=== PATIENT | female | born 1995 | race Caucasian/White ===

== ENCOUNTER 2021-07-07 03:02 | Day surgery (SDC) | payer OTHER, SELFPAY ==
[2021-06-30 10:16] VITALS: BMI 29.9
[2021-07-07] VITALS (11 sets, daily range): BP systolic 103–125; BP diastolic 57–92; PULSE 61–94; RESP 12–18; TEMP 36.6–36.8; O2SAT 95–100
[2021-07-07] MEDS: ACETAMINOPHEN 500 MG TABLET 1000 MG PO (12:26)
[2021-07-07] MEDS: LACTATED RINGERS 1,000 ML 30 ML IV CONT ×3 (12:27→16:27)
[2021-07-07] MEDS: KETOROLAC 15 MG/ML VIAL (*BKC) IV PUSH (12:27)
--- NOTE | 2021-07-07 13:04 | WPDANESEPPF ---
Anes - Initial Pre Proc Eval Procedure: Operation Date: 07/07/21 14:00 Proposed Procedures p Diagnostic Laparoscopy - Eber Velasco MD Date/Time: 07/07/21 13:04 Surgeon: Eber Velasco MD Pre Op Diagnosis: pelvic pain Patient Data Age: 26 Gender: F Height: 1.52 m Weight: 70.6 kg Last Vital Signs Temp 36.6 C 07/07/21 12:30 Pulse 79 07/07/21 12:30 Resp 18 07/07/21 12:30 BP 122/77 07/07/21 12:30 Pulse Ox 100 07/07/21 12:30 Allergies Allergy/AdvReac Type Severity Reaction Status Date / Time No Known Allergies Allergy Unverified 07/07/21 12:47 Home Medications Medication Instructions Recorded Confirmed Type albuterol sulfate 2 puff INHALATION QID PRN 06/30/21 07/07/21 History Patient hx anesthesia problems: none Family hx anesthesia problems: none Results Review: All pre-operative results and documents have been reviewed as part of the pre-operative evaluation. [facility] Past Medical History Medical History Asthma Social History Social History Years smoked: 1 Smoking status: Former smoker Tobacco type: cigarettes Smoking end date: 10/02/11 Alcohol intake: current Alcohol use details: ONCE A MONTH Substance use: never Substance use type: does not use Living arrangements: alone Spiritual care concerns: No Anes - Eval Final PreProcedure Day of Procedure 07/07/21 13:04 Patient weight: overweight Heart: regular rate and rhythm Lungs: clear to auscultation Airway: Mallampati scale class II Neurological: alert and oriented Last oral intake: >/= 8 hours ASA classification: II Emergent: no Anesthetic plan: proceed Anesthesia type and monitoring: general ETT and standard monitoring Results Review: All pre-operative results and documents have been reviewed as part of the pre-operative evaluation. Informed Consent: The patient's anesthetic plan and its attendant risks and benefits were discussed with the patient/family/POA. Questions were solicited and answers provided to the satisfaction of the patient/family/POA.
--- NOTE | 2021-07-07 13:49 | WPDHPUPDATE1 ---
History and Physical Update Update Date/Time: 07/07/21 13:49 History and Physical has been reviewed, including an updated exam of the patient. There are NO changes in the patient's condition. Risks, benefits, and alternatives have been discussed and questions answered. Patient agrees to proceed with procedure.
--- NOTE | 2021-07-07 15:38 | W.PM.PROC2 ---
Procedure Note - Detailed Date of Procedure 07/07/21 Pre-op Diagnosis pelvic pain, ovarian lesion Post-op Diagnosis same (Endometriosis, ovarian cysts) Procedure Performed Diagnostic laparoscopy, radical resection of endometriosis, bilateral ovarian cystectomy, section paratubal cyst Surgeon Eber Velasco MD Anesthesia general Indications Pelvic pain, ovarian lesion Findings Endometriosis in the bilateral cul-de-sac, bilateral ovarian cysts, paratubal cyst Description of Procedure The patient was taken to the operating room. She was prepped and draped in the dorsal lithotomy position after induction general anesthesia. A 5 mm incision was made with a scalpel on the abdominal skin in the left upper quadrant of the abdomen. A 5 mm trocar was inserted into the intra-abdominal cavity under direct visualization the scope. In the same fashion a 5 mm left lower quadrant trocar was inserted and a 5 mm infraumbilical trocar was inserted. The bilateral ovaries were suspended with suture. This was done by placing a Saeed-Jocelyn needle through the abdominal wall in the right and left lower quadrant. It was passed through the ovary with the suture attached. It was released and grabbed on the other side the ovary and the suture was pulled back to the abdominal wall and fastened with a hemostat outside the abdomen. A SHARI manipulator was placed using a speculum and a tenaculum. A diagnostic tip on the SHARI manipulator was placed. Large areas of the surface peritoneum removed from the bilateral cul-de-sac. This was done with sharp and blunt dissection. This was done with cautery. The ureters were dissected out from just below the pelvic brim to the uterine arteries. Bilateral ovarian cystectomies were performed using sharp and blunt dissection and cautery. A paratubal cyst was removed from the right ovary. Pelvis was irrigated with copious amounts normal saline. Interceed was placed over the bilateral hemipelvis ease. The ovaries were released and the SHARI manipulator was removed. The pneumoperitoneum was reduced. The trocars were removed. Skin was closed with subcuticular 4 micro. The patient's incisions were covered with Dermabond. She was taken recovery room in stable condition. Sponge lap and needle counts were correct x2. Estimated Blood Loss 50 Complications No immediate complications Condition stable Disposition PACU
[2021-07-07] MEDS: fentaNYL CITRATE INJ (*CRX) 100 MCG/2 ML VIAL 25 MCG IV PUSH ×5 (15:57→16:31)
[2021-07-07] MEDS: ONDANSETRON INJ 4 MG/2 ML VIAL IV PUSH (16:19)
[2021-07-07] MEDS: diphenhydrAMINE HCl INJ 50 MG/ML VIAL 25 MG IV PUSH (17:07)
[2021-07-07] MEDS: SCOPOLAMINE 1.5 MG PATCH TRANSDERM (17:07)
[2021-07-07] MEDS: oxyCODONE HCL (*CRX) 5 MG TAB IR PO (18:45)
== END 2021-07-07 18:50 | disposition home or self-care (01) ==
PROVIDERS: Visit Provider Obstetrics & Gynecology
PROC: (CPT 49320; principal; 2021-07-07 14:00)
DX: R10.2 Pelvic and perineal pain (principal); N80.3 Endometriosis of pelvic peritoneum; N83.8 Other noninflammatory disorders of ovary, fallopian tube and broad ligament; N83.11 Corpus luteum cyst of right ovary; N83.202 Unspecified ovarian cyst, left side; J45.909 Unspecified asthma, uncomplicated; Z79.51 Long term (current) use of inhaled steroids; Z87.891 Personal history of nicotine dependence
CPT/HCPCS: 58662; 88304; 88305; A9270; J1100; J1170; J1200; J1885; J2250; J2405; J2704; J3010; J7030; J7120; Q9968

== ENCOUNTER 2022-09-13 01:08 | Day surgery (SDC) | payer OTHER, SELFPAY ==
[2022-08-31 15:23] VITALS: BMI 30.1
--- NOTE | 2022-08-31 15:28 | PC.NURSE ---
Report to the Outpatient Waiting Room, entrance under the green pavilion located off [facility], at time 0630 on date 09/13/22. Planned Procedure Time: 0830. Time changes happen often and if your time is changed the preop area will call you the afternoon before. - You and your visitor will be asked to self-screen and do not enter if you have any COVID symptoms. - Only one visitor is requested with a max of two and NO children visitors are allowed at this time. - The patient visitor may be requested to leave or wait in car when not with patient due to distancing restrictions. - A mask is optional within the hospital. Patients may have clear liquids (water, carbonated beverages, clear teas, apple juice) until 3 hours prior to surgery with a maximum of 20 ounces. - No food from midnight until time of surgery Take the following medications with a SIP of water the morning of surgery: INHALER AND PAIN PILL IF NEEDED Medications to discontinue per physician: N/A Date to take last dose: N/A Please no make-up, nail irish, hairspray, perfume, deodorant, or body powder the day of surgery. No jewelry (including any body piercings) or valuables the day of surgery, leave them at home. Please take a shower or bath the night before, or the morning of, surgery with an antibacterial soap. Wear comfortable, loose fitting clothing. - Jewelry must be removed prior to entering the operating room. Rings and piercings that are not removed may be cut off. - The hospital will not accept responsibility for valuables. - Please leave all valuables, including medications, at home the day of surgery. If you are going home after surgery, a licensed double bottom driver must drive you home. - NO public transportation without another adult if you receive anesthesia. - We recommend that an adult stay with you for 24 hours following discharge. - We also recommend that you do not drive, make important decision, drink alcoholic beverages, or take any drugs that were not prescribed by your health care provider for at least 24 hours after your discharge time. Follow any additional instructions given to you from your surgeon. If you or anyone in your household have experienced Covid symptoms in the past week, please notify your surgeon or the nurse liaison at the phone number below for possible testing. Telephone instructions given to PT - MEENA LINO and asked if any additional questions and then verbalized understanding. Patient advised to call surgeon office or pre surgery nurse liaison [phone] if any additional questions.
--- NOTE | 2022-09-12 13:47 | P.PNAN_ITS ---
Anes - Initial Pre Proc Eval Procedure: Operation Date: 09/13/22 08:30 Proposed Procedures p Diagnostic Laparoscopy - Eber Velasco MD Date/Time: 09/12/22 13:47 Surgeon: Eber Velasco MD Pre Op Diagnosis: plevic pain Patient Data Age: 27 Gender: F Height: 1.52 m Weight: 70 kg Allergies Allergy/AdvReac Type Severity Reaction Status Date / Time No Known Allergies Allergy Unverified 08/31/22 15:22 Home Medications Medication Instructions Recorded Confirmed Type albuterol sulfate 90 mcg/actuation 2 puff inhalation QID PRN 06/30/21 08/31/22 History aerosol inhaler Bronchospasm hydrocodone 5 mg-acetaminophen 325 1 - 2 tablet PO Q4H PRN pain #25 07/07/21 08/31/22 Rx mg tablet tabs Patient hx anesthesia problems: none Family hx anesthesia problems: none Results Review: All pre-operative results and documents have been reviewed as part of the pre- operative evaluation. [facility] Past Medical History Medical History (Updated 09/12/22 @ 13:47 by Malcolm Green MD) Asthma Endometriosis Social History Social History Years smoked: 1 Smoking status: Former smoker Tobacco type: cigarettes Smoking end date: 10/02/11 Additional smoking assessment comments: AGE 17 X 1 YEAR Alcohol intake: current Alcohol use details: RARE Substance use: never Substance use type: does not use Living arrangements: with friend(s) Spiritual care concerns: No Anes - Eval Final PreProcedure Day of Procedure 09/12/22 13:47 Patient weight: obese Heart: regular rate and rhythm Lungs: clear to auscultation Airway: Mallampati scale class II Neurological: alert and oriented Last oral intake: >/= 8 hours ASA classification: II Emergent: no Anesthetic plan: proceed Anesthesia type and monitoring: general ETT and standard monitoring Results Review: All pre-operative results and documents have been reviewed as part of the pre- operative evaluation. Informed Consent: The patient's anesthetic plan and its attendant risks and benefits were discussed with the patient/family/POA. Questions were solicited and answers provided to the satisfaction of the patient/family/POA.
[2022-09-13] VITALS (10 sets, daily range): BP systolic 97–127; BP diastolic 51–82; PULSE 59–97; RESP 14–16; TEMP 36.5–37.6; O2SAT 94–100
[2022-09-13] MEDS: ACETAMINOPHEN 500 MG TABLET 1000 MG PO (07:30)
[2022-09-13] MEDS: LACTATED RINGERS 1,000 ML 30 ML IV CONT ×2 (07:30→11:22)
[2022-09-13] MEDS: KETOROLAC 15 MG/ML VIAL (*BKC) IV PUSH (07:30)
[2022-09-13] MEDS: SCOPOLAMINE 1.5 MG PATCH TRANSDERM (07:30)
--- NOTE | 2022-09-13 08:25 | WPDHPUPDATE1 ---
History and Physical Update Update Date/Time: 09/13/22 08:25 History and Physical has been reviewed, including an updated exam of the patient. There are NO changes in the patient's condition. Risks, benefits, and alternatives have been discussed and questions answered. Patient agrees to proceed with procedure.
[2022-09-13] MEDS: fentaNYL CITRATE INJ (*CRX) 100 MCG/2 ML VIAL 25 MCG IV PUSH ×4 (11:50→12:10)
--- NOTE | 2022-09-13 12:10 | W.PM.PROC2 ---
Procedure Note - Detailed Date of Procedure 09/13/22 Pre-op Diagnosis plevic pain, endometriosis Post-op Diagnosis Same ( endometriosis) Procedure Performed radical resection of endometriosis Surgeon Eber Velasco MD Anesthesia General Indications pelvic pain Findings multiple endometriosis implants in the posterior cul-de-sac. Classic endometriosis with dark clusters of hemorrhagic tissue with surrounding scarring and vascularity, otherwise normal appearing uterus tubes and ovaries. Description of Procedure The patient was taken to the operating room. She was prepped and draped in the dorsal lithotomy position after induction general anesthesia. A 5 mm incision was made with a scalpel on the abdominal skin in the left upper quadrant of the abdomen. A 5 mm trocar was inserted into the intra-abdominal cavity under direct visualization the scope. In the same fashion a 5 mm left lower quadrant trocar was inserted and a 5 mm infraumbilical trocar was inserted. The ovaries were suspended. This was done using Saeed-Jocelyn Endoclose needle and 0 Vicryl. The bilateral lower quadrants were pierced with the Saeed-Jocelyn needle while being transilluminated. They were carrying an 0 Vicryl suture which was passed through the ovary bilaterally brought back out through the same incision/puncture site. They were held in place on the skin surface with a hemostat. A SHARI manipulator was placed in the intrauterine cavity using speculum and tenaculum. It was anteflexed. This revealed the entire posterior cul-de-sac clearly. The posterior cul-de-sac peritoneum was removed completely With the exception of the deepest cul-de-sac areas which were fulgurated And the peritoneum over the rectum. From the infundibulopelvic ligament and suspensory ligament ovary laterally to the rectum medially the peritoneum was caudal cephalad dimension was from the pelvic brim down to the uterine arteries Then cervix. This was done with sharp and blunt dissection and cautery. The ureters were dissected out and isolated. Areas in the deepest posterior cul-de-sac were cauterized. There was some very mild endometriotic lesions in this area. The pelvis was irrigated. Copious amounts of irrigation were used. Interceed was placed over the dissected areas bilaterally. Two pieces were used. The pneumoperitoneum was reduced. The trocars were removed. Skin was closed with subcuticular 4 micro. The patient's incisions were covered with Dermabond. She was taken recovery room in stable condition. Sponge lap and needle counts were correct x2. Estimated Blood Loss -50.0 Urine Output -100.0 Complications No immediate complications Condition Stable Disposition Same day
[2022-09-13] MEDS: ONDANSETRON INJ 4 MG/2 ML VIAL IV PUSH (12:46)
[2022-09-13] MEDS: HALOPERIDOL LACTATE 5 MG/ML VIAL 1 MG IV PUSH (13:10)
== END 2022-09-13 13:56 | disposition home or self-care (01) ==
PROVIDERS: PCP Physician Assistant; Visit Provider Obstetrics & Gynecology
PROC: (CPT 49320; principal; 2022-09-13 08:30)
DX: N80.329 Endometriosis of the posterior cul-de-sac, unspecified depth (principal); R10.2 Pelvic and perineal pain; J45.909 Unspecified asthma, uncomplicated; Z79.51 Long term (current) use of inhaled steroids; Z87.891 Personal history of nicotine dependence; E66.9 Obesity, unspecified; Z68.30 Body mass index [BMI] 30.0-30.9, adult
CPT/HCPCS: 58662; 88305; A9270; J1100; J1630; J1885; J2250; J2405; J2704; J3010; J7030; J7120

== ENCOUNTER 2023-11-14 08:50 | Outpatient (CLI) | payer OTHER, SELFPAY | END 2023-11-14 08:51 | disposition home or self-care (01) | LOC: ANHSURGERY 09:00 | PROVIDERS: PCP Physician Assistant; Visit Provider Obstetrics & Gynecology | DX: Z01.818 Encounter for other preprocedural examination (principal); N80.9 Endometriosis, unspecified | CPT/HCPCS: 36415; 86850; 86900; 86901 ==

== ENCOUNTER 2023-11-22 00:22 | Day surgery (SDC) | payer OTHER, SELFPAY ==
[2023-11-13 12:41] VITALS: BMI 33.5
--- NOTE | 2023-11-13 12:45 | PC.NURSE ---
Report to the Outpatient Waiting Room, entrance under the green pavilion located off [facility], at time 6:00 on date 11/22/23. Planned Procedure Time: 7:30. Time changes happen often and if your time is changed the preop area will call you the afternoon before. - You and your visitor will be asked to self-screen and do not enter if you have any COVID symptoms. - A mask is optional within the hospital at this time. Patients may have clear liquids (water, carbonated beverages, clear teas, apple juice) until 3 hours prior to surgery with a maximum of 20 ounces. - No food from midnight until time of surgery Take the following medications with a SIP of water the morning of surgery: INHALERS DO NOT STOP ANY OF YOUR OTHER PRESCRIPTION MEDICATIONS PRIOR TO SURGERY ?EXCEPT THE FOLLOWING Medications to discontinue per physician: N/A Date to take last dose: N/A Please no make-up, nail salvadorean, hairspray, perfume, deodorant, or body powder the day of surgery. No jewelry (including any body piercings) or valuables the day of surgery, leave them at home. Please take a shower or bath the night before, or the morning of, surgery with an antibacterial soap. Wear comfortable, loose fitting clothing. - Jewelry must be removed prior to entering the operating room. Rings and piercings that are not removed may be cut off. - The hospital will not accept responsibility for valuables. - Please leave all valuables, including medications, at home the day of surgery. If you are going home after surgery, a licensed route sales delivery driver must drive you home. - NO public transportation without another adult if you receive anesthesia. - We recommend that an adult stay with you for 24 hours following discharge. - We also recommend that you do not drive, make important decision, drink alcoholic beverages, or take any drugs that were not prescribed by your health care provider for at least 24 hours after your discharge time. Follow any additional instructions given to you from your surgeon. If you or anyone in your household have experienced Covid symptoms in the past week, please notify your surgeon or the nurse liaison at the phone number below for possible testing. Telephone instructions given to PT - MEENA LINO and asked if any additional questions and then verbalized understanding. Patient advised to call surgeon office or pre surgery nurse liaison [phone] if any additional questions.
[2023-11-22] VITALS (11 sets, daily range): BP systolic 104–147; BP diastolic 61–92; PULSE 64–123; RESP 14–22; TEMP 36.2–37.1; O2SAT 94–100
[2023-11-22] MEDS: ACETAMINOPHEN 500 MG TABLET 1000 MG PO (06:27)
[2023-11-22] MEDS: LACTATED RINGERS 1,000 ML 30 ML IV CONT ×2 (06:30→10:00)
[2023-11-22] MEDS: KETOROLAC 15 MG/ML VIAL (*BKC) IV PUSH (06:32)
--- NOTE | 2023-11-22 07:14 | WPDHPUPDATE1 ---
History and Physical Update Update Date/Time: 11/22/23 07:14 History and Physical has been reviewed, including an updated exam of the patient. There are NO changes in the patient's condition. Risks, benefits, and alternatives have been discussed and questions answered. Patient agrees to proceed with procedure.
--- NOTE | 2023-11-22 07:17 | WPDANESEPPF ---
Anes - Initial Pre Proc Eval Procedure: Operation Date: 11/22/23 07:30 Proposed Procedures p Total Laparoscopic Hysterectomy with Bilateral Salpingectomy - Eber Velasco MD Date/Time: 11/22/23 07:17 Surgeon: Eber Velasco MD Pre Op Diagnosis: Endometriosis of Pelvis Patient Data Age: 28 Gender: F Height: 1.52 m Weight: 76.3 kg Last Vital Signs Temp 97.5 F L 11/22/23 06:14 Pulse 83 11/22/23 06:14 Resp 20 11/22/23 06:14 BP 147/92 H 11/22/23 06:14 Pulse Ox 99 11/22/23 06:14 O2 Del Method Room Air 11/22/23 06:14 Allergies Allergy/AdvReac Type Severity Reaction Status Date / Time No Known Allergies Allergy Verified 11/13/23 12:40 Home Medications Medication Instructions Recorded Confirmed Type albuterol sulfate 90 mcg/actuation 2 puff inhalation QID PRN 06/30/21 11/22/23 History aerosol inhaler Bronchospasm fluticasone furoate 100 1 inh inhalation DAILY 11/13/23 11/22/23 History mcg/actuation blister powder for inhalation (Arnuity Ellipta) Patient hx anesthesia problems: post op nausea/vomiting Family hx anesthesia problems: none Results Review: All pre-operative results and documents have been reviewed as part of the pre-operative evaluation. [facility] Past Medical History Medical History (Updated 09/13/22 @ 11:55 by bEer Velasco MD) Asthma Endometriosis Social History Social History Years smoked: 1 Smoking status: Never smoker Tobacco type: cigarettes Smoking end date: 10/02/11 Additional smoking assessment comments: AGE 17 X 1 YEAR Alcohol intake: current Alcohol use details: 2/MONTH Substance use: never Substance use type: does not use Living arrangements: with family Spiritual care concerns: No Anes - Eval Final PreProcedure Day of Procedure 11/22/23 07:17 Patient weight: obese Heart: regular rate and rhythm Lungs: clear to auscultation Airway: Mallampati scale class III Neurological: alert and oriented Last oral intake: >/= 8 hours ASA classification: II Emergent: no Anesthetic plan: proceed Anesthesia type and monitoring: general ETT and standard monitoring Results Review: All pre-operative results and documents have been reviewed as part of the pre-operative evaluation. Informed Consent: The patient's anesthetic plan and its attendant risks and benefits were discussed with the patient/family/POA. Questions were solicited and answers provided to the satisfaction of the patient/family/POA.
[2023-11-22] MEDS: SCOPOLAMINE 1 MG PATCH 1 PATCH TRANSDERM (07:20)
[2023-11-22] MEDS: ceFAZolin 2 GM/D5W 50 ML 2 GM/50 ML BAG IVPB (07:30)
[2023-11-22] MEDS: ceFAZolin SODIUM 1 GM VIAL (08:21)
[2023-11-22] MEDS: METHYLENE BLUE 0.5% INJ 10 ML AMPULE 20 ML IRRIGATION (09:30)
[2023-11-22] MEDS: fentaNYL CITRATE INJ (*CRX) 100 MCG/2 ML VIAL 25 MCG IV PUSH ×6 (10:25→11:02)
--- NOTE | 2023-11-22 10:28 | W.PM.PROC2 ---
Procedure Note - Detailed Date of Procedure 11/22/23 Pre-op Diagnosis Endometriosis of Pelvis Post-op Diagnosis Same Procedure Performed Total laparoscopic hysterectomy , bilateral salpingectomy and left oophorectomy, 20 minutes of adhesiolysis Surgeon Eber Velasco MD Anesthesia General Findings adhesions throughout the pelvis focused at the left ovarian fossa and left pelvic sidewall. Dense adhesions around the left ovary . endometriosis was focused around the left pelvic sidewall and left ovary. Description of Procedure This patient was taken to the operating room. She was prepped and draped in the dorsal lithotomy position after induction of general anesthesia. The uterine manipulator and John cup were placed. This was done with a speculum and tenaculum. The speculum was placed. The cervix was grasped with a tenaculum. The stay sutures were placed at 3 and 9:00 a.m.. The stay sutures of 0 Vicryl were brought through the appropriately sized John cup. The tip of the SHARI manipulator was placed in the intrauterine cavity. The cup was slid into place around the cervix and into the fornices. It was locked into place. The sutures were then wrapped around the handle and tied under tension. A 5 mm skin incision was made in the left upper quadrant the abdomen. A 5 mm trocar was inserted into the intrauterine cavity under direct visualization of the scope. Pneumoperitoneum was achieved. A left lower quadrant 11 mm incision was made with scalpel. An 11 mm trocar was inserted into the anterior abdominal cavity under direct visualization the scope. A 5 mm infraumbilical incision was made with a scalpel and a 5 mm trocar was inserted the intra-abdominal cavity under direct visualization of the scope. adhesiolysis was performed around bilateral ovaries, left pelvic sidewall, paracervical and parametrial tissue. 20 minutes. This was done a sharp and blunt dissection and cautery. Bilateral ureteral lysis was performed. This was done from the pelvic brim down to the uterine artery. This was done with careful dissection using sharp and blunt dissection. The fallopian tubes were removed bilaterally. The mesosalpinx around the fallopian tubes were cauterized transected with LigaSure cautery. This was done in a bilateral fashion from the ovary to the uterine cornua. The fallopian tube was transected at the uterine cornu and amputated. The tube was taken out the left lower quadrant trocar site. In a stepwise fashion along the lateral aspects of the uterus the round ligament and broad ligaments were cauterized transected down to the level of the uterine arteries. A bladder flap was created in the bladder was moved distally to the end of the cervix and over the John cup. The bilateral uterine arteries were cauterized and transected. Colpotomy was then performed. In a circumferential fashion the vagina was transected using unipolar cautery. The incision was made down on the John cup. The uterus and cervix were taken out through the vagina. A pneumo occluder was placed in the vagina. Left ovary was removed after further consideration, the the infundibular ligament was cauterized transected LigaSure cautery and the ovary was amputated. Was placed in the vagina before closure of the vaginal cuff. The vaginal cuff was closed with a 0 V lock suture in a running fashion. The pelvis was irrigated with copious amounts antibiotic irrigation. The ureters were again examined and found to be intact and flowing freely under the uterine arteries into the bladder. The bladder was intact. It was examined directly. Cystoscopy was performed. Methylene blue was seen to egress from both ureters. It was injected after closure of the vaginal cuff. The vagina was irrigated with Betadine solution after removal of the Pneumo occluder. The patient was taken to recovery room. She was stable condition. Sponge lap and needle counts were correct x2. Drains Yes Packin
--- NOTE | 2023-11-22 11:18 | P.OP_ITS ---
Procedure Note - Detailed Date of Procedure 11/22/23 Pre-op Diagnosis Endometriosis of Pelvis Post-op Diagnosis Same Procedure Performed Laparoscopic bilateral salpingectomy Surgeon Eber Velasco MD Anesthesia General Indications Unwanted fertility Findings Normal pelvic anatomy Description of Procedure The patient was taken the operating room. She was prepped and draped in the dorsal lithotomy position after induction of general anesthesia. A 5 mm skin incision was made in the left upper quadrant of the abdominal skin. A 5 mm trocar was inserted the intra-abdominal cavity under direct visualization of the scope. Pneumoperitoneum was achieved. A 5 mm trocar was inserted in the left lower quadrant identical fashion. A 5 mm infraumbilical trocar was inserted in identical fashion as well. The bilateral fallopian tubes were removed. This was done by using a LigaSure cautery. The mesosalpinx adjacent to the tube was cauterized transected with LigaSure. This was initiated in the area the ovary and in a stepwise fashion moved medially to the area of the cornu of the uterus. Once there the fallopian tube was cauterized and transected. This was done in identical fashion on each side. The fallopian tubes were taken out through the left lower quadrant trocar site. The pneumoperitoneum was reduced. The trocars removed. The skin was closed with subcuticular 4 Monocryl and covered with Derm abond. She was taken to cover stable condition. Sponge lap and needle counts were correct x2. Estimated Blood Loss 5 Drains No Packing No Pathology Yes Complications No immediate complications Condition Stable Disposition PACU
[2023-11-22] MEDS: DEXTROSE 5%/0.45% SOD CHL 1,000 ML 125 ML IV CONT (11:34)
[2023-11-22] MEDS: KETOROLAC 30 MG/ML VIAL (*BKC) IV PUSH ×2 (11:34→17:25)
--- NOTE | 2023-11-22 11:41 | PC.NURSE ---
On 11/22/23, the student, Pilar Fan, provided care and completed [facility] documentation on this patient. I have reviewed the student's documentation and agree with the findings.
[2023-11-22] MEDS: HYDROcodone/acetaminophen (*CRX) 5-325 MG TABLET 1 TAB PO (15:03)
--- NOTE | 2023-11-22 17:06 | PC.NURSE ---
Assisted pt to the bathroom, allen catheter was removed while pt was sitting on the toliet. Pericare performed, underwear was placed on the patient. Pt assisted to a chair. Pt tolerated allen removal well
[2023-11-22] MEDS: SIMETHICONE 80 MG TAB.CHEW PO (17:26)
[2023-11-22] MEDS: HYDROcodone/acetaminophen (*CRX) 10-325 MG TABLET 1 TAB PO (18:50)
[2023-11-23] MEDS: IBUPROFEN 600 MG TABLET PO ×2 (04:40→10:19)
[2023-11-23] MEDS: HYDROcodone/acetaminophen (*CRX) 5-325 MG TABLET 1 TAB PO ×2 (04:40→10:19)
[2023-11-23 04:53] VITALS: BP 102/57; PULSE 96; RESP 18; TEMP 36.4; O2SAT 98
[2023-11-23 08:40] VITALS: BP 106/60; PULSE 70; RESP 16; TEMP 37; O2SAT 99
[2023-11-23 09:28] VITALS: PULSE 80; RESP 18
[2023-11-23] MEDS: ALBUTEROL SULFATE (*SP) AEROSOL 1 PUFF 2 PUFF INHALATION (09:28)
[2023-11-23] MEDS: SIMETHICONE 80 MG TAB.CHEW PO (10:18)
== END 2023-11-23 10:45 | disposition home or self-care (01) ==
LOC: ANHSURGERY 07:27 → ANHOB2 11:14
PROVIDERS: PCP Physician Assistant; Visit Provider Obstetrics & Gynecology
PROC: 0UT9FZZ Resection of Uterus, Via Natural or Artificial Opening With Percutaneous Endoscopic Assistance (ICD-10-PCS; CPT 58571; principal; 2023-11-22 07:30)
DX: N80.C19 Endometriosis of the anterior abdominal wall, unspecified depth (principal); N80.102 Endometriosis of left ovary, unspecified depth; D25.1 Intramural leiomyoma of uterus; D25.2 Subserosal leiomyoma of uterus; N73.6 Female pelvic peritoneal adhesions (postinfective); D27.0 Benign neoplasm of right ovary; N83.11 Corpus luteum cyst of right ovary; N83.12 Corpus luteum cyst of left ovary; N80.03 Adenomyosis of the uterus; N83.8 Other noninflammatory disorders of ovary, fallopian tube and broad ligament; N88.8 Other specified noninflammatory disorders of cervix uteri; J45.909 Unspecified asthma, uncomplicated; E66.9 Obesity, unspecified; Z68.32 Body mass index [BMI] 32.0-32.9, adult; Z79.51 Long term (current) use of inhaled steroids; Z82.49 Family history of ischemic heart disease and other diseases of the circulatory system; Z80.51 Family history of malignant neoplasm of kidney
CPT/HCPCS: 58571; 36415; 86850; 86900; 86901; 88305; 88307; 94640; 99199; A9270; J0690; J1100; J1170; J1200; J1885; J2250; J2405; J2704; J3010; J7030; J7120; Q9968

== ENCOUNTER 2024-06-18 00:47 | Day surgery (SDC) | payer OTHER, SELFPAY ==
[2024-06-10 12:55] VITALS: BMI 29.0
--- NOTE | 2024-06-10 12:56 | PC.NURSE ---
Report to the Outpatient Waiting Room, entrance under the green pavilion located off [facility], at time _0730_ on date _[phone]_. Planned Procedure Time: _0930_.? Time changes happen often and if your time is changed the preop area will call you the afternoon before. - You and your visitor will be asked to self-screen and do not enter if you have any COVID symptoms. Please call surgeon if you need to reschedule. - A mask is optional within the hospital at this time. Patients may have clear liquids (water, carbonated beverages, clear teas, apple juice) until 3 hours prior to surgery with a maximum of 20 ounces. - No food from midnight until time of surgery and no smoking Take only the following medications with a SIP of water on the morning of surgery: ___Inhaler DO NOT STOP ANY OF YOUR OTHER PRESCRIPTION MEDICATIONS PRIOR TO SURGERY EXCEPT THE FOLLOWING Medications to discontinue per physician ____None Date to take last dose Please no make-up, nail wallisian, hairspray, perfume, deodorant, or body powder the day of surgery.? No jewelry (including any body piercings) or valuables the day of surgery, leave them at home.? Please take a shower or bath the night before, or the morning of, surgery with an antibacterial soap.? Wear comfortable, loose fitting clothing.? - Jewelry must be removed prior to entering the operating room.? Rings and piercings that are not removed may be cut off. - The hospital will not accept responsibility for valuables.? - Please leave all valuables, including medications, at home the day of surgery. If you are going home after surgery, a licensed tanker driver must drive you home.? - NO public transportation without another adult if you receive anesthesia. - We recommend that an adult stay with you for 24 hours following discharge. - We also recommend that you do not drive, make important decision, drink alcoholic beverages, or take any drugs that were not prescribed by your health care provider for at least 24 hours after your discharge time. Follow any additional instructions given to you from your surgeon. Telephone instructions given to __eWroison__and asked if any additional questions and then verbalized understanding. Patient advised to call surgeon office or pre surgery nurse liaison [phone] if any additional questions.
[2024-06-18] VITALS (9 sets, daily range): BP systolic 93–121; BP diastolic 53–84; PULSE 55–89; RESP 10–20; TEMP 36.2–36.5; O2SAT 98–100; BMI 29.0
[2024-06-18] MEDS: LACTATED RINGERS 1,000 ML 30 ML IV CONT (08:05)
[2024-06-18] MEDS: KETOROLAC 15 MG/ML VIAL (*BKC) IV PUSH (08:13)
[2024-06-18] MEDS: ACETAMINOPHEN 500 MG TABLET 1000 MG PO (08:13)
--- NOTE | 2024-06-18 08:15 | PM.IMHP ---
H&P: HPI History of Present Illness Date/Time: 06/18/24 08:15 Chief Complaint: Pelvic pain Narrative: 29-year-old female with recurrent ovarian cysts. She also has recurrent pelvic pain. She has a existing complex right ovarian cyst with a normal tumor marker Testing. Patient is status post TLH and LSO. we discussed treatment options in detail. The patient has recurrent ovarian cysts and would like definitive treatment. Talked about oophorectomy. We talked about risks, benefits, and alternatives she hormone replacement therapy. We talked about the consequences of oophorectomy in a 29-year-old. She understands that she may have hot flashes that are poorly controlled and she may have decreased sexual desire sexual thought. We talked about the risks, benefits, and alternatives of hormone replacement therapy. We talked about testosterone replacement therapy. She would like to proceed with laparoscopic right oophorec The patient understands the details of the procedure. The procedure has been explained in detail. She understands the risks. She understands that injuries may occur that result in hospitalization, more surgery, and severe illness. She understands risk of hemorrhage and infection. She denies any chest pain or shortness of breath. She denies any nausea, vomiting, fever, chills. Review of Systems Review of Systems: All systems reviewed & are unremarkable except as noted in HPI and below Constitutional: Constitutional: Denies chills, Denies fatigue, Denies fever(s) and Denies weakness Eyes: Eyes: Denies blurry vision, Denies change in vision, Denies loss of peripheral vision, Denies loss of vision, Denies other visual disturbances and Denies eye pain ENT: Denies vertigo, Denies dizziness, Denies hearing loss, Denies mouth pain, Denies nasal obstruction, Denies neck mass and Denies neck pain Cardiovascular: Cardiovascular: Denies chest pain, Denies diaphoresis, Denies syncope, Denies leg edema and Denies dyspnea Respiratory: Respiratory: Denies chest congestion, Denies cough, Denies hemoptysis, Denies dyspnea and Denies wheezing Gastrointestinal: Gastrointestinal: Denies abdominal pain, Denies constipation, Denies diarrhea, Denies nausea and Denies vomiting Genitourinary: Genitourinary: Denies hematuria, Denies change in libido, Denies nocturia, Denies genital lesions, Denies flank pain and Denies urinary urgency Musculoskeletal: Musculoskeletal: Denies abnormal gait, Denies back pain, Denies myalgias, Denies arthralgias, Denies joint swelling, Denies muscle weakness and Denies neck pain Integumentary/Breasts: Skin/Breast: Denies swelling, Denies breast pain, Denies breast mass, Denies dry skin, Denies nipple discharge, Denies unusual bruising and Denies jaundice Neurologic: Denies Neuro-related abnormal movements, Denies Abnormal speech present, Denies abnormal gait, Denies behavioral changes, Denies confusion, Denies vertigo, Denies dizziness, Denies syncope, Denies loss of vision, Denies memory loss, Denies convulsions and Denies weakness Psychiatric: Psychiatric: Denies abnormal sleep pattern, Denies behavioral changes, Denies change in libido, Denies confusion, Denies depression, Denies anhedonia and Denies memory loss Endocrine: Endocrine: Reports no additional endocrine complaints, Denies change in libido and Denies fatigue Hematologic/Lymphatic: Hematologic/Lymphatic: Reports no additional hematologic/lymphatic complaints Allergic/Immunologic: Allergic/Immunologic: Reports no additional allergic/immunologic complaints and Denies wheezing [facility] Past Medical History Medical History (Updated 06/18/24 @ 08:17 by Rubén Velasco MD) Asthma Endometriosis Social History Social History Years smoked: 1 Smoking status: Never smoker Tobacco type: cigarettes Smoking end date: 10/02/11 Additional smoking assessment comments: AGE 17 X 1 YEAR Alcohol intake: c
--- NOTE | 2024-06-18 08:18 | WPDHPUPDATE1 ---
History and Physical Update Update Date/Time: 06/18/24 08:18 History and Physical has been reviewed, including an updated exam of the patient. There are NO changes in the patient's condition. Risks, benefits, and alternatives have been discussed and questions answered. Patient agrees to proceed with procedure.
--- NOTE | 2024-06-18 08:50 | P.PNAN_ITS ---
Anes - Initial Pre Proc Eval Procedure: Operation Date: 06/18/24 09:30 Proposed Procedures p Laparoscopic Right Salpingo oophorectomy - Rubén Velasco MD Date/Time: 06/18/24 08:50 Surgeon: Rubén Velasco MD Pre Op Diagnosis: pelvic pain Patient Data Age: 29 Gender: F Height: 1.52 m Weight: 67.4 kg Allergies Allergy/AdvReac Type Severity Reaction Status Date / Time No Known Allergies Allergy Verified 06/18/24 08:16 Home Medications Medication Instructions Recorded Confirmed Type albuterol sulfate 90 mcg/actuation 2 puff inhalation QID PRN 06/30/21 06/10/24 History aerosol inhaler Bronchospasm fluticasone furoate 100 1 inh inhalation DAILY 11/13/23 06/10/24 History mcg/actuation blister powder for inhalation (Arnuity Ellipta) phentermine 37.5 mg tablet 37.5 mg PO DAILY 06/10/24 06/10/24 History Patient hx anesthesia problems: post op nausea/vomiting Family hx anesthesia problems: none Results Review: All pre-operative results and documents have been reviewed as part of the pre- operative evaluation. [facility] Past Medical History Medical History Asthma Endometriosis Social History Social History Years smoked: 1 Smoking status: Never smoker Tobacco type: cigarettes Smoking end date: 10/02/11 Additional smoking assessment comments: AGE 17 X 1 YEAR Alcohol intake: current Alcohol use details: 2/MONTH Substance use: never Substance use type: does not use Living arrangements: with family Spiritual care concerns: No Anes - Eval Final PreProcedure Day of Procedure 06/18/24 08:50 Patient weight: overweight Heart: regular rate and rhythm Lungs: clear to auscultation Airway: Mallampati scale class 1 Neurological: alert and oriented Last oral intake: >/= 8 hours ASA classification: II Emergent: no Anesthetic plan: proceed Anesthesia type and monitoring: general ETT and standard monitoring Results Review: All pre-operative results and documents have been reviewed as part of the pre- operative evaluation. Informed Consent: The patient's anesthetic plan and its attendant risks and benefits were discussed with the patient/family/POA. Questions were solicited and answers provided to the satisfaction of the patient/family/POA.
[2024-06-18 09:19] LABS: BEDSIDEPREGUCG Negative (Negative)
--- NOTE | 2024-06-18 09:46 | W.PM.PROC2 ---
Procedure Note - Detailed Date of Procedure 06/18/24 Pre-op Diagnosis pelvic pain, recurrent ovarian cyst Post-op Diagnosis Same Procedure Performed Diagnostic laparoscopy Surgeon Rubén Velasco MD Anesthesia General Indications Pelvic pain Findings cystic right ovary with absent uterus, tubes and left ovary. Description of Procedure The patient was taken to the operating room. She was prepped and draped in the dorsal lithotomy position after induction general anesthesia. A 5 mm incision was made with a scalpel on the abdominal skin in the left upper quadrant of the abdomen. A 5 mm trocar was inserted into the intra-abdominal cavity under direct visualization the scope. In the same fashion a 11 mm left lower quadrant trocar was inserted and a 11 mm infraumbilical trocar was inserted. The infundibulopelvic ligament on the right was isolated, cauterized, and transected with LigaSure cautery. Some adhesions around the ovarian parenchyma were cauterized and transected with LigaSure cautery. The ovaries placed in endobag and taken out the left lower quadrant trocar site The pelvis was irrigated. The pneumoperitoneum was reduced. The trocars were removed. Skin was closed with subcuticular 4 micro. The patient's incisions were covered with Dermabond. She was taken recovery room in stable condition. Sponge lap and needle counts were correct x2. Estimated Blood Loss 10 Complications No immediate complications Condition Stable Disposition Same day
[2024-06-18] MEDS: ONDANSETRON INJ 4 MG/2 ML VIAL IV PUSH (10:13)
[2024-06-18] MEDS: SCOPOLAMINE 1 MG PATCH 1 PATCH TRANSDERM (10:36)
[2024-06-18] MEDS: diphenhydrAMINE HCl INJ 50 MG/ML VIAL 25 MG IV PUSH (10:57)
== END 2024-06-18 12:01 | disposition home or self-care (01) ==
PROVIDERS: PCP Internal Medicine; Visit Provider Obstetrics & Gynecology
PROC: (CPT 49320; principal; 2024-06-18 09:30)
DX: N83.11 Corpus luteum cyst of right ovary (principal); J45.909 Unspecified asthma, uncomplicated; Z87.891 Personal history of nicotine dependence; Z79.51 Long term (current) use of inhaled steroids
CPT/HCPCS: 58661; 88305; A9270; J1100; J1200; J1596; J1885; J2250; J2270; J2405; J2550; J2704; J2710; J7030; J7120